=== PATIENT | male | born 1955 | race Caucasian/White ===

== ENCOUNTER 2020-07-17 13:23 | Outpatient (CLI) | payer MEDICARE, BC ==
--- NOTE | 2020-07-17 14:40 | MRI ---
MRI Lumbar Spine Noncontrast: HISTORY: Lumbar stenosis with neurogenic claudication. Patient complains of low back pain with radiation of pa in into bilateral hips for many years. COMPARISON: 03/26/2013 FINDINGS: The visualized retroperitoneal structures demonstrate a normal appearance. Conus medullaris is normal in morphology and terminates at the L1 level. L1-2: Mild disc osteophyte complex with mild facet hypertrophic changes. There is slight effacement o f the ventral aspect of the thecal sac. Neural foramina are patent. There is a greater far lateral disc bulge on the right. L2-3: Broad-based disc osteophyte complex is again present with facet hypertrophic changes and mild l igamentous thickening. There is prominence of the epidural fat posteriorly. Findings result in moderate concentric narrowing of the thecal sac. Mild bilateral neural foraminal narrowing is present . L3-4: Loss of intervertebral disc height. Broad-based disc osteophyte complex is present. Facet hyper trophic changes and ligamentous thickening are noted. There is prominence of epidural fat posteriorly. These findings result in moderate to severe concentric narrowing of the thecal sac which does represent an interval change compared to the prior exam. Mild bilateral neural foraminal narrowing is present. L4-5: Loss of intervertebral disc height. Broad-based disc osteophyte complex is present with severe facet hypertrophic changes and ligamentous thickening. Findings result in severe central canal narrowing overall similar to prior exam. Mild bilateral neural foraminal narrowing is present. L5-S1: Modic type II endplate degenerative changes are present. There is severe loss of intervertebra l disc height. Broad-based osteophyte is present. Mild facet degenerative changes are seen. There is generalized mild central canal narrowing with mild right and moderate left-sided neural foraminal narrowing. Findings are overall similar to the prior exam. IMPRESSION: Multilevel disc degenerative changes with prominence of epidural fat at multiple levels resulting in moderate central canal narrowing at the L2-3 level, moderate to severe central canal narrowing at the L3-4 levels, and severe central canal narrowing at the L4-5 level. Moderate left-sided neural for aminal narrowing is again seen at the L5-S1 level.
--- NOTE | 2020-07-17 15:02 | RAD ---
EXAM: 4 views of the lumbosacral spine HISTORY: Lumbar stenosis with neurogenic claudication COMPARISON: None FINDINGS: 4 views of the lumbosacral spine shows grade 1 anterolisthesis of L4 on L5. The vertebral b odies demonstrate normal height without evidence of fracture. The intervertebral discs are mildly narrowed throughout the lumbar spine with moderate surrounding osteophytes. Moderate posterior facet arthrosis is seen in the lower lumbosacral spine. Alignment is unchanged with flexion and extension. The sacroiliac joints are unremarkable. Atherosclerotic callus cages are seen in the aorta. IMPRESSION: Moderate degenerative changes of the lumbar spine as above
== END 2020-07-17 13:24 | disposition home or self-care (01) ==
LOC: BICMRI 13:23
PROVIDERS: ATTEND Nurse Practitioner Family
DX: M48.062 Spinal stenosis, lumbar region with neurogenic claudication (principal); M47.816 Spondylosis without myelopathy or radiculopathy, lumbar region; M51.36 Other intervertebral disc degeneration, lumbar region; M48.07 Spinal stenosis, lumbosacral region
CPT/HCPCS: 72110; 72148

== ENCOUNTER 2021-02-04 09:54 | Inpatient (IN) | payer MEDICARE, BC ==
[2021-02-04 10:38] LABS: #Lymphocytes 1.3 thou/uL (1.20-3.40); #Monocytes 0.6 thou/uL (0.11-0.59); #Neutrophils 3.5 thou/uL (1.40-6.50); %Basophils 0.5 % (0.0-1.0); %Eosinophils 0.2 % (0.0-10.0); %Lymphocytes 23.6 % (21.0-51.0); %Monocytes 10.7 % (0.0-10.0); %Neutrophils 64.9 % (42.0-75.0); Hemoglobin 15.5 g/dL (14.0-18.0); Mean Corpuscular HGB CONC 34.8 g/dL (32.0-36.0); Mean Corpuscular Hemoglobin 31.7 pg (27.0-31.0); Mean Platelet Volume 5.5 fL (7.4-10.4); Platelet Count 311 thou/uL (130-400); RBC Distribution Width 11.9 % (11.5-14.5); Red Blood Cell (RBC) Count 4.88 mill/uL (4.70-6.10); White Blood Cell (WBC) Count 5.5 thou/uL (4.8-10.8)
[2021-02-04 10:58] LABS: ALT (SGPT) 40 U/L (8-55); AST (SGOT) 35 U/L (5-34); Albumin 4.1 g/dL (3.4-4.8); Alkaline Phosphatase 65 U/L (40-110); BUN (Urea Nitrogen) 9 mg/dL (8.4-25.7); Bilirubin, Total 1.1 mg/dL (0.2-1.2); Calc. Creatinine Clearance 0 mL/min (70-130); Globulin 2.4 g/dL (2.4-3.5); Glucose 111 mg/dL (80-115); Magnesium 1.7 mg/dL (1.6-2.6); Protein, Total 6.5 g/dL (5.8-8.1)
[2021-02-04 11:08] LABS: Anion Gap 18 mmol/L (10-20); Carbon Dioxide 34 mmol/L (23-31); Chloride 75 mmol/L (98-107); Sodium 125 mmol/L (136-145)
[2021-02-04 11:12] LABS: Potassium 2.2 mmol/L (3.5-5.1)
[2021-02-04 11:14] LABS: Phosphorus 1.5 mg/dL (2.3-4.7)
[2021-02-04] MEDS ORDERED: Potassium Chloride 20 MEQ TAB ONE (11:19)
[2021-02-04] MEDS ORDERED: Potassium Chloride 20 MEQ/100 ML PREMIX BAG ONE ×2 (11:34→11:35)
[2021-02-04] MEDS ORDERED: Bisacodyl 5 MG TAB PO PRN (12:01)
[2021-02-04] MEDS ORDERED: Ondansetron PF 4 MG/2 ML Vial IVP PRN (12:01)
[2021-02-04] MEDS ORDERED: Senokot S 8.6-50 MG TAB PO PRN (12:01)
[2021-02-04] MEDS ORDERED: Potassium Phosphate 40 MMOL in Sodium Chloride 0.9% 500 ML IVPB SCH (12:15)
[2021-02-04] MEDS ORDERED: Potassium Chloride 20 MEQ TAB PO SCH (12:15)
[2021-02-04 12:41] LABS: Anion Gap 16 mmol/L (10-20); Carbon Dioxide 35 mmol/L (23-31); Chloride 77 mmol/L (98-107); Sodium 125 mmol/L (136-145)
[2021-02-04 12:45] LABS: Potassium 2.5 mmol/L (3.5-5.1)
[2021-02-04 12:51] LABS: Troponin I 0.012 ng/mL (< 0.028)
[2021-02-04 15:17] VITALS: BMI 31.8
[2021-02-04 15:50] LABS: Anion Gap 11 mmol/L (10-20); BUN (Urea Nitrogen) 8 mg/dL (8.4-25.7); Calc. Creatinine Clearance 110 mL/min (70-130); Calcium 9.4 mg/dL (7.8-10.44); Carbon Dioxide 36 mmol/L (23-31); Chloride 81 mmol/L (98-107); Glucose 102 mg/dL (80-115); Magnesium 1.6 mg/dL (1.6-2.6); Sodium 126 mmol/L (136-145)
[2021-02-04 15:54] LABS: Phosphorus 1.2 mg/dL (2.3-4.7); Potassium 2.3 mmol/L (3.5-5.1)
[2021-02-04 15:55] LABS: Troponin I 0.024 ng/mL (< 0.028)
[2021-02-04] MEDS: Lidocaine 5% Patch TD SCH (16:00)
[2021-02-04] MEDS: NS 0.9% w/ 20 MEQ KCL 1,000 ML/1,000 ML BAG IV SCH (18:16)
[2021-02-04] MEDS: Acetaminophen 325 MG TAB PO PRN (19:24)
[2021-02-04] MEDS: Famotidine/PF 20 mg/2ml Vial SLOW IVP SCH (21:27)
[2021-02-04] MEDS: Potassium Chloride 20 MEQ TAB PO SCH (21:27)
[2021-02-04] MEDS: Magnesium Oxide 400 MG TAB PO SCH (21:27)
[2021-02-04] MEDS: PHOS-NAK 1 PKT PACK PO SCH (21:28)
[2021-02-04] MEDS: HYDROcodone/Acetaminophen 5/325 mg Tablet PO PRN (22:41)
[2021-02-05] MEDS: Acetaminophen 325 MG TAB PO PRN ×2 (00:27→13:12)
[2021-02-05] MEDS: HYDROcodone/Acetaminophen 5/325 mg Tablet PO PRN ×5 (02:15→20:01)
[2021-02-05] MEDS: NS 0.9% w/ 20 MEQ KCL 1,000 ML/1,000 ML BAG IV SCH ×2 (02:56→15:48)
[2021-02-05] MEDS: Lidocaine Patch Removal TOP SCH (04:46)
[2021-02-05 05:22] LABS: ALT (SGPT) 30 U/L (8-55); AST (SGOT) 23 U/L (5-34); Albumin 3.3 g/dL (3.4-4.8); Alkaline Phosphatase 52 U/L (40-110); Anion Gap 12 mmol/L (10-20); BUN (Urea Nitrogen) 5 mg/dL (8.4-25.7); Bilirubin, Total 0.8 mg/dL (0.2-1.2); Calc. Creatinine Clearance 118 mL/min (70-130); Calcium 8.2 mg/dL (7.8-10.44); Carbon Dioxide 32 mmol/L (23-31); Chloride 87 mmol/L (98-107); Globulin 1.9 g/dL (2.4-3.5); Glucose 118 mg/dL (80-115); Magnesium 1.5 mg/dL (1.6-2.6); Protein, Total 5.2 g/dL (5.8-8.1); Sodium 128 mmol/L (136-145)
[2021-02-05 05:25] LABS: Phosphorus 3.2 mg/dL (2.3-4.7); Potassium 2.6 mmol/L (3.5-5.1)
[2021-02-05 05:39] LABS: #Basophils 0.1 thou/uL (0.0-0.2); #Lymphocytes 1.8 thou/uL (1.20-3.40); #Monocytes 0.4 thou/uL (0.11-0.59); #Neutrophils 2.5 thou/uL (1.40-6.50); %Basophils 1.4 % (0.0-1.0); %Eosinophils 0.5 % (0.0-10.0); %Lymphocytes 38.1 % (21.0-51.0); %Monocytes 8.5 % (0.0-10.0); %Neutrophils 51.5 % (42.0-75.0); Hemoglobin 13.1 g/dL (14.0-18.0); Mean Corpuscular HGB CONC 33.6 g/dL (32.0-36.0); Mean Corpuscular Hemoglobin 31.5 pg (27.0-31.0); Mean Platelet Volume 5.5 fL (7.4-10.4); Platelet Count 248 thou/uL (130-400); RBC Distribution Width 12.1 % (11.5-14.5); Red Blood Cell (RBC) Count 4.16 mill/uL (4.70-6.10); White Blood Cell (WBC) Count 4.8 thou/uL (4.8-10.8)
[2021-02-05] MEDS ORDERED: Magnesium 2 GM/50 ML 2 GM in Premix Bag 1 BAG IVPB SCH (05:45)
[2021-02-05] MEDS ORDERED: Electrolyte Replacement Protocol FS PRN (05:45)
[2021-02-05] MEDS: Potassium Chloride 20 MEQ TAB PO SCH ×4 (06:15→20:00)
[2021-02-05] MEDS: Amlodipine 10 MG TAB PO SCH (08:46)
[2021-02-05] MEDS: Enoxaparin Sodium 40 MG/0.4 ML SYRINGE SC SCH (08:47)
[2021-02-05] MEDS: Aspirin 81 mg Enteric Coated Tablet PO SCH (08:47)
[2021-02-05] MEDS: Famotidine/PF 20 mg/2ml Vial SLOW IVP SCH ×2 (08:47→20:00)
[2021-02-05] MEDS: Folic Acid 1 MG TAB PO SCH (08:48)
[2021-02-05] MEDS: Thiamine 100 MG TAB PO SCH (08:48)
[2021-02-05] MEDS: Magnesium Oxide 400 MG TAB PO SCH ×2 (08:48→20:00)
[2021-02-05] MEDS: Lisinopril 20 MG TAB PO SCH (08:48)
[2021-02-05] MEDS: PHOS-NAK 1 PKT PACK PO SCH ×3 (08:49→19:59)
[2021-02-05] MEDS: Lidocaine 5% Patch TD SCH (15:49)
[2021-02-05 18:50] LABS: SARS-CoV-2 PCR by NAA Not Detected (NotDetected)
[2021-02-05] MEDS ORDERED: Simvastatin 10 MG TAB PO SCH (21:00)
[2021-02-05] MEDS ORDERED: Pravastatin Sodium 20 MG TAB PO SCH (21:00)
[2021-02-06] MEDS: HYDROcodone/Acetaminophen 5/325 mg Tablet PO PRN ×3 (00:53→09:34)
[2021-02-06] MEDS: Acetaminophen 325 MG TAB PO PRN (04:08)
[2021-02-06] MEDS: NS 0.9% w/ 20 MEQ KCL 1,000 ML/1,000 ML BAG IV SCH (04:09)
[2021-02-06] MEDS: Lidocaine Patch Removal TOP SCH (05:11)
[2021-02-06 05:22] LABS: #Basophils 0.1 thou/uL (0.0-0.2); #Eosinphils 0.1 thou/uL (0.0-0.7); #Lymphocytes 1.7 thou/uL (1.20-3.40); #Monocytes 0.5 thou/uL (0.11-0.59); #Neutrophils 3.1 thou/uL (1.40-6.50); %Basophils 1.2 % (0.0-1.0); %Eosinophils 1.6 % (0.0-10.0); %Lymphocytes 30.7 % (21.0-51.0); %Monocytes 9.5 % (0.0-10.0); %Neutrophils 56.9 % (42.0-75.0); Hemoglobin 12.7 g/dL (14.0-18.0); Mean Corpuscular HGB CONC 32.5 g/dL (32.0-36.0); Mean Corpuscular Hemoglobin 30.5 pg (27.0-31.0); Mean Corpuscular Volume 93.7 fL (78.0-98.0); Mean Platelet Volume 5.7 fL (7.4-10.4); Platelet Count 266 thou/uL (130-400); RBC Distribution Width 12.3 % (11.5-14.5); Red Blood Cell (RBC) Count 4.15 mill/uL (4.70-6.10); White Blood Cell (WBC) Count 5.4 thou/uL (4.8-10.8)
[2021-02-06 05:36] LABS: Anion Gap 12 mmol/L (10-20); BUN (Urea Nitrogen) 5 mg/dL (8.4-25.7); Calc. Creatinine Clearance 122 mL/min (70-130); Calcium 8.2 mg/dL (7.8-10.44); Carbon Dioxide 28 mmol/L (23-31); Chloride 96 mmol/L (98-107); Glucose 94 mg/dL (80-115); Magnesium 1.7 mg/dL (1.6-2.6); Potassium 3.7 mmol/L (3.5-5.1); Sodium 132 mmol/L (136-145)
[2021-02-06] MEDS ORDERED: Magnesium 2 GM/50 ML 2 GM in Premix Bag 1 BAG IVPB SCH (06:15)
[2021-02-06 07:38] VITALS: BP 124/73; TEMP 97.8
[2021-02-06] MEDS: Famotidine/PF 20 mg/2ml Vial SLOW IVP SCH (09:28)
[2021-02-06] MEDS: Amlodipine 10 MG TAB PO SCH (09:30)
[2021-02-06] MEDS: Aspirin 81 mg Enteric Coated Tablet PO SCH (09:38)
[2021-02-06] MEDS: PHOS-NAK 1 PKT PACK PO SCH (09:39)
[2021-02-06] MEDS: Lisinopril 20 MG TAB PO SCH (09:40)
[2021-02-06] MEDS: Folic Acid 1 MG TAB PO SCH (09:42)
[2021-02-06] MEDS: Magnesium Oxide 400 MG TAB PO SCH (09:45)
[2021-02-06] MEDS: Thiamine 100 MG TAB PO SCH (09:45)
[2021-02-06] MEDS: Potassium Chloride 20 MEQ TAB PO SCH (09:46)
[2021-02-06] MEDS: Enoxaparin Sodium 40 MG/0.4 ML SYRINGE SC SCH (09:48)
== END 2021-02-06 12:55 | disposition home or self-care (01) | DRG 640 ==
LOC: ERS 09:54 → 2SE 11:48
PROVIDERS: ADMIT Family Medicine; ATTEND Hospitalist
DX: E87.6 Hypokalemia (principal); G93.41 Metabolic encephalopathy; E87.1 Hypo-osmolality and hyponatremia; Z20.822 Contact with and (suspected) exposure to COVID-19; Z23 Encounter for immunization; I10 Essential (primary) hypertension; M54.5 Low back pain; G89.29 Other chronic pain; E78.5 Hyperlipidemia, unspecified; E83.39 Other disorders of phosphorus metabolism; F41.9 Anxiety disorder, unspecified; E66.9 Obesity, unspecified; Z68.31 Body mass index [BMI] 31.0-31.9, adult; E83.42 Hypomagnesemia; E86.0 Dehydration; F10.20 Alcohol dependence, uncomplicated; M79.672 Pain in left foot; E78.00 Pure hypercholesterolemia, unspecified; Z98.52 Vasectomy status; Z79.82 Long term (current) use of aspirin; Z79.899 Other long term (current) drug therapy
CPT/HCPCS: 36415; 80048; 80053; 83735; 83930; 83935; 84100; 84443; 84484; 85025; 87635; 90471; 90732; 93005; 93306; 93970; 94760; 96365; 96366; G0009; J1650; J3475; J3480; J7030; S0028; U0003; U0005

== ENCOUNTER 2022-05-26 09:11 | Inpatient (IN) | payer MEDICARE, BC ==
[2022-05-26] MEDS ORDERED: Cefepime 2 GM VIAL ONE (09:25)
[2022-05-26] MEDS ORDERED: Vancomycin 1 GM/200 ML BAG ONE (09:25)
[2022-05-26 10:06] LABS: #Eosinphils 0.8 thou/uL (0.0-0.7); #Monocytes 1.4 thou/uL (0.11-0.59); #Neutrophils 10.6 thou/uL (1.40-6.50); %Basophils 0.2 % (0.0-1.0); %Eosinophils 5.2 % (0.0-10.0); %Lymphocytes 13.4 % (21.0-51.0); %Monocytes 9.3 % (0.0-10.0); %Neutrophils 71.9 % (42.0-75.0); Hemoglobin 15.5 g/dL (14.0-18.0); Mean Corpuscular HGB CONC 31.8 g/dL (32.0-36.0); Mean Corpuscular Hemoglobin 32.5 pg (27.0-31.0); Mean Platelet Volume 6.1 fL (7.4-10.4); Platelet Count 315 thou/uL (130-400); RBC Distribution Width 12.1 % (11.5-14.5); Red Blood Cell (RBC) Count 4.77 mill/uL (4.70-6.10); White Blood Cell (WBC) Count 14.8 thou/uL (4.8-10.8)
[2022-05-26 10:07] LABS: Bilirubin Negative (Negative); Blood, Urine Negative (Negative); Clarity Clear (Clear); Glucose, Urine (Dipstick) Normal (Negative); Ketone, Urine Negative (Negative); Leukocyte Negative Leu/uL (Negative); Nitrite Negative (Negative); Protein, Urine (Dipstick) Negative (Neg-Trace); Specific Gravity, Urine 1.012 (1.002-1.036); Urobilinogen Normal mg/dL (Less than 2); pH, Urine 5.5 (5.0-9.0)
[2022-05-26 10:24] LABS: ALT (SGPT) 13 U/L (8-55); AST (SGOT) 16 U/L (5-34); Albumin 3.9 g/dL (3.4-4.8); Alkaline Phosphatase 108 U/L (40-110); Anion Gap 17 mmol/L (10-20); BUN (Urea Nitrogen) 7 mg/dL (8.4-25.7); Bilirubin, Total 1.5 mg/dL (0.2-1.2); Calc. Creatinine Clearance 0 mL/min (70-130); Calcium 8.7 mg/dL (7.8-10.44); Carbon Dioxide 29 mmol/L (23-31); Chloride 95 mmol/L (98-107); Estimated GFR 65; Globulin 2.3 g/dL (2.4-3.5); Glucose 111 mg/dL (80-115); Potassium 3.9 mmol/L (3.5-5.1); Protein, Total 6.2 g/dL (5.8-8.1); Sodium 137 mmol/L (136-145)
[2022-05-26 11:28] LABS: SARS-CoV-2 NAA Rapid Test Not Detected (NotDetected)
[2022-05-26 13:15] LABS: Lactic Acid 2.3 mmol/L (0.5-2.2)
[2022-05-26 14:25] VITALS: BMI 39.4
[2022-05-26] MEDS: HYDROcodone/Acetaminophen 7.5/325 mg Tablet PO SCH ×2 (14:57→20:32)
[2022-05-26] MEDS: Morphine 2 MG/ML VIAL SLOW IVP PRN ×2 (16:21→21:34)
[2022-05-26] MEDS: Cefepime 2 GM in Sodium Chloride 0.9% 100 ML IVPB SCH (20:33)
[2022-05-26] MEDS: Vancomycin 1 GM in Premix Bag 1 BAG IVPB SCH (21:09)
[2022-05-26] MEDS ORDERED: Cefepime 2 GM in Sodium Chloride 0.9% 100 ML IVPB SCH (22:00)
[2022-05-27] MEDS: Morphine 2 MG/ML VIAL SLOW IVP PRN ×4 (02:49→22:31)
[2022-05-27 06:43] LABS: #Eosinphils 0.8 thou/uL (0.0-0.7); #Lymphocytes 1.7 thou/uL (1.20-3.40); #Monocytes 1.4 thou/uL (0.11-0.59); %Basophils 0.1 % (0.0-1.0); %Eosinophils 5.4 % (0.0-10.0); %Lymphocytes 11.5 % (21.0-51.0); %Monocytes 9.4 % (0.0-10.0); %Neutrophils 73.5 % (42.0-75.0); Hemoglobin 14.2 g/dL (14.0-18.0); Mean Corpuscular HGB CONC 33.6 g/dL (32.0-36.0); Mean Corpuscular Hemoglobin 34.6 pg (27.0-31.0); Mean Platelet Volume 6.4 fL (7.4-10.4); Platelet Count 246 thou/uL (130-400); RBC Distribution Width 12.2 % (11.5-14.5); Red Blood Cell (RBC) Count 4.11 mill/uL (4.70-6.10)
[2022-05-27 07:13] LABS: ALT (SGPT) 10 U/L (8-55); AST (SGOT) 17 U/L (5-34); Albumin 2.9 g/dL (3.4-4.8); Alkaline Phosphatase 88 U/L (40-110); Anion Gap 16 mmol/L (10-20); BUN (Urea Nitrogen) 6 mg/dL (8.4-25.7); Calc. Creatinine Clearance 142 mL/min (70-130); Calcium 8.1 mg/dL (7.8-10.44); Carbon Dioxide 21 mmol/L (23-31); Chloride 101 mmol/L (98-107); Estimated GFR 95; Globulin 2.2 g/dL (2.4-3.5); Glucose 102 mg/dL (80-115); Potassium 3.8 mmol/L (3.5-5.1); Protein, Total 5.1 g/dL (5.8-8.1); Sodium 134 mmol/L (136-145)
[2022-05-27] MEDS: Cefepime 2 GM in Sodium Chloride 0.9% 100 ML IVPB SCH ×2 (08:10→20:16)
[2022-05-27] MEDS: Enoxaparin Sodium 40 MG/0.4 ML SYRINGE SC SCH (08:10)
[2022-05-27] MEDS: HYDROcodone/Acetaminophen 7.5/325 mg Tablet PO SCH ×2 (08:11→14:37)
[2022-05-27] MEDS: Vancomycin 1 GM in Premix Bag 1 BAG IVPB SCH ×2 (10:17→22:07)
[2022-05-27] MEDS: Silver Sulfadiazine 50 GM TUBE TOP SCH (14:38)
[2022-05-27] MEDS ORDERED: HYDROcodone/Acetaminophen 5/325 mg Tablet PO PRN (18:28)
[2022-05-27] MEDS ORDERED: Acetaminophen 325 MG TAB PO PRN (18:28)
[2022-05-27] MEDS ORDERED: Ondansetron ODT 4 MG TAB PO PRN (19:47)
[2022-05-27] MEDS ORDERED: Ondansetron PF 4 MG/2 ML Vial IVP PRN (19:47)
[2022-05-27] MEDS: Simvastatin 10 MG TAB PO SCH (20:15)
[2022-05-27] MEDS: Calcium Carbonate 500 MG ChewTAB PO PRN (20:15)
[2022-05-27] MEDS: Carvedilol 6.25 MG TAB PO SCH (20:16)
[2022-05-27] MEDS: HYDROcodone/Acetaminophen 10/325 mg Tablet PO PRN (20:16)
[2022-05-27 21:24] LABS: Vancomycin, Trough 11.9 ug/mL
[2022-05-27] MEDS: VANCOMYCIN 1.25 GM/250 ML BAG 1.25 GM in Premix Bag 1 BAG IVPB SCH (22:29)
[2022-05-28] MEDS ORDERED: diphenhydrAMINE 25 MG CAP PO SCH (01:30)
[2022-05-28] MEDS: HYDROcodone/Acetaminophen 10/325 mg Tablet PO PRN ×5 (02:24→22:11)
[2022-05-28 07:02] LABS: #Eosinphils 1.1 thou/uL (0.0-0.7); #Lymphocytes 1.7 thou/uL (1.20-3.40); #Monocytes 1.2 thou/uL (0.11-0.59); #Neutrophils 9.2 thou/uL (1.40-6.50); %Basophils 0.2 % (0.0-1.0); %Eosinophils 8.6 % (0.0-10.0); %Lymphocytes 12.6 % (21.0-51.0); %Monocytes 8.7 % (0.0-10.0); %Neutrophils 69.9 % (42.0-75.0); Hemoglobin 13.7 g/dL (14.0-18.0); Mean Corpuscular HGB CONC 32.9 g/dL (32.0-36.0); Mean Corpuscular Hemoglobin 33.8 pg (27.0-31.0); Mean Platelet Volume 5.7 fL (7.4-10.4); Platelet Count 301 thou/uL (130-400); Red Blood Cell (RBC) Count 4.04 mill/uL (4.70-6.10); White Blood Cell (WBC) Count 13.2 thou/uL (4.8-10.8)
[2022-05-28 07:24] LABS: Anion Gap 13 mmol/L (10-20); BUN (Urea Nitrogen) 5 mg/dL (8.4-25.7); CRP (Inflammatory) 9.61 mg/dL (= or < 0.5); Calc. Creatinine Clearance 147 mL/min (70-130); Calcium 8.2 mg/dL (7.8-10.44); Carbon Dioxide 25 mmol/L (23-31); Chloride 98 mmol/L (98-107); Estimated GFR 96; Glucose 113 mg/dL (80-115); Potassium 3.7 mmol/L (3.5-5.1); Sodium 132 mmol/L (136-145)
[2022-05-28] MEDS: Cefepime 2 GM in Sodium Chloride 0.9% 100 ML IVPB SCH ×2 (09:10→20:27)
[2022-05-28] MEDS: Carvedilol 6.25 MG TAB PO SCH ×2 (09:11→20:27)
[2022-05-28] MEDS: Aspirin 81 mg Enteric Coated Tablet PO SCH (09:11)
[2022-05-28] MEDS: Enoxaparin Sodium 40 MG/0.4 ML SYRINGE SC SCH (09:11)
[2022-05-28] MEDS: Lisinopril 20 MG TAB PO SCH (09:12)
[2022-05-28] MEDS: VANCOMYCIN 1.25 GM/250 ML BAG 1.25 GM in Premix Bag 1 BAG IVPB SCH ×2 (10:20→22:11)
[2022-05-28] MEDS: Silver Sulfadiazine 50 GM TUBE TOP SCH (14:09)
[2022-05-28] MEDS ORDERED: diphenhydrAMINE 50 MG/ML VIAL IVP SCH (18:15)
[2022-05-28] MEDS ORDERED: methylPREDNISolone Sod Succ 40 MG VIAL IVP SCH (20:15)
[2022-05-28] MEDS: Simvastatin 10 MG TAB PO SCH (22:05)
[2022-05-29] MEDS: HYDROcodone/Acetaminophen 10/325 mg Tablet PO PRN ×5 (03:36→22:40)
[2022-05-29 07:03] LABS: #Eosinphils 0.1 thou/uL (0.0-0.7); #Lymphocytes 0.9 thou/uL (1.20-3.40); #Monocytes 0.2 thou/uL (0.11-0.59); #Neutrophils 8.5 thou/uL (1.40-6.50); %Basophils 0.2 % (0.0-1.0); %Eosinophils 0.7 % (0.0-10.0); %Lymphocytes 9.4 % (21.0-51.0); %Monocytes 2.3 % (0.0-10.0); %Neutrophils 87.4 % (42.0-75.0); Hemoglobin 13.9 g/dL (14.0-18.0); Mean Corpuscular HGB CONC 32.4 g/dL (32.0-36.0); Mean Corpuscular Hemoglobin 32.9 pg (27.0-31.0); Mean Platelet Volume 5.7 fL (7.4-10.4); Platelet Count 322 thou/uL (130-400); RBC Distribution Width 11.9 % (11.5-14.5); Red Blood Cell (RBC) Count 4.23 mill/uL (4.70-6.10); White Blood Cell (WBC) Count 9.7 thou/uL (4.8-10.8)
[2022-05-29 07:24] LABS: ALT (SGPT) 13 U/L (8-55); AST (SGOT) 16 U/L (5-34); Albumin 3.2 g/dL (3.4-4.8); Alkaline Phosphatase 71 U/L (40-110); Anion Gap 15 mmol/L (10-20); BUN (Urea Nitrogen) 5 mg/dL (8.4-25.7); Bilirubin, Total 0.4 mg/dL (0.2-1.2); Calc. Creatinine Clearance 140 mL/min (70-130); Calcium 8.2 mg/dL (7.8-10.44); Carbon Dioxide 24 mmol/L (23-31); Chloride 98 mmol/L (98-107); Estimated GFR 95; Globulin 2.5 g/dL (2.4-3.5); Glucose 146 mg/dL (80-115); Protein, Total 5.7 g/dL (5.8-8.1); Sodium 133 mmol/L (136-145)
[2022-05-29] MEDS: Cefepime 2 GM in Sodium Chloride 0.9% 100 ML IVPB SCH ×2 (09:02→20:58)
[2022-05-29] MEDS: Aspirin 81 mg Enteric Coated Tablet PO SCH (09:03)
[2022-05-29] MEDS: methylPREDNISolone Sod Succ 40 MG VIAL IVP SCH ×3 (09:03→21:06)
[2022-05-29] MEDS: Lisinopril 20 MG TAB PO SCH (09:05)
[2022-05-29] MEDS: Carvedilol 6.25 MG TAB PO SCH ×2 (09:05→20:57)
[2022-05-29] MEDS: Enoxaparin Sodium 40 MG/0.4 ML SYRINGE SC SCH (09:05)
[2022-05-29 09:55] LABS: Vancomycin, Trough 14.4 ug/mL
[2022-05-29] MEDS: Silver Sulfadiazine 50 GM TUBE TOP SCH (11:38)
[2022-05-29] MEDS: VANCOMYCIN 1.25 GM/250 ML BAG 1.25 GM in Premix Bag 1 BAG IVPB SCH (12:03)
[2022-05-29] MEDS: Simvastatin 10 MG TAB PO SCH (20:57)
[2022-05-29] MEDS: diphenhydrAMINE 25 MG CAP PO PRN (20:57)
[2022-05-30] MEDS: HYDROcodone/Acetaminophen 10/325 mg Tablet PO PRN ×5 (03:24→21:37)
[2022-05-30] MEDS: Enoxaparin Sodium 40 MG/0.4 ML SYRINGE SC SCH (09:05)
[2022-05-30] MEDS: Cefepime 2 GM in Sodium Chloride 0.9% 100 ML IVPB SCH ×2 (09:05→20:12)
[2022-05-30] MEDS: methylPREDNISolone Sod Succ 40 MG VIAL IVP SCH (09:06)
[2022-05-30] MEDS: Aspirin 81 mg Enteric Coated Tablet PO SCH (09:10)
[2022-05-30] MEDS: Lisinopril 20 MG TAB PO SCH (09:10)
[2022-05-30] MEDS: Carvedilol 6.25 MG TAB PO SCH ×2 (09:10→20:11)
[2022-05-30] MEDS ORDERED: Gentamicin TOPICAL Ointment 0.1% 15 gm Tube TOP SCH ×2 (11:00→21:00)
[2022-05-30] MEDS: Silver Sulfadiazine 50 GM TUBE TOP SCH (11:07)
[2022-05-30] MEDS: Simvastatin 10 MG TAB PO SCH (20:11)
[2022-05-30] MEDS: Calcium Carbonate 500 MG ChewTAB PO PRN (20:12)
[2022-05-31] MEDS: HYDROcodone/Acetaminophen 10/325 mg Tablet PO PRN ×5 (01:58→23:08)
[2022-05-31] MEDS: Morphine 2 MG/ML VIAL SLOW IVP PRN ×2 (03:01→20:31)
[2022-05-31 06:54] LABS: Band 2 % (5-11); Hemoglobin 14.9 g/dL (14.0-18.0); Lymphocytes 12 % (21-51); MDiff Complete? YES; Mean Corpuscular HGB CONC 33.2 g/dL (32.0-36.0); Mean Platelet Volume 5.9 fL (7.4-10.4); Monocytes 15 % (0-10); Neutrophil 56 % (42-75); Platelet Count 405 thou/uL (130-400); Platelet Morphology Comment Appears Increased; RBC Distribution Width 12.2 % (11.5-14.5); RBC Morphology Normal; Reactive Lymphocytes 15 % (0-10); Red Blood Cell (RBC) Count 4.38 mill/uL (4.70-6.10); White Blood Cell (WBC) Count 22.2 thou/uL (4.8-10.8)
[2022-05-31 07:26] LABS: Calcium 9.5 mg/dL (7.8-10.44)
[2022-05-31 07:27] LABS: ALT (SGPT) 26 U/L (8-55); AST (SGOT) 33 U/L (5-34); Albumin 3.9 g/dL (3.4-4.8); Alkaline Phosphatase 82 U/L (40-110); Anion Gap 15 mmol/L (10-20); BUN (Urea Nitrogen) 9 mg/dL (8.4-25.7); Bilirubin, Total 0.5 mg/dL (0.2-1.2); Calc. Creatinine Clearance 143 mL/min (70-130); Carbon Dioxide 29 mmol/L (23-31); Chloride 95 mmol/L (98-107); Estimated GFR 95; Globulin 2.8 g/dL (2.4-3.5); Glucose 111 mg/dL (80-115); Potassium 4.1 mmol/L (3.5-5.1); Protein, Total 6.7 g/dL (5.8-8.1); Sodium 135 mmol/L (136-145)
[2022-05-31] MEDS: Aspirin 81 mg Enteric Coated Tablet PO SCH (08:56)
[2022-05-31] MEDS: Lisinopril 20 MG TAB PO SCH (08:56)
[2022-05-31] MEDS: Cefepime 2 GM in Sodium Chloride 0.9% 100 ML IVPB SCH (08:56)
[2022-05-31] MEDS: Carvedilol 6.25 MG TAB PO SCH ×2 (08:57→20:21)
[2022-05-31] MEDS: Enoxaparin Sodium 40 MG/0.4 ML SYRINGE SC SCH (08:57)
[2022-05-31] MEDS ORDERED: Iopamidol-370 76% 500 ML 1 ML ONE (09:04)
[2022-05-31 11:31] LABS: Actual Bicarbonate (HCO3a) 29.5 mEq/L (22-28); Base Excess (BEa) 6.2 mEq/L (-2.0 to +3.0); Calcium, Ionized (arterial) 1.11 mmol/L (1.12-1.30); Hemoglobin (Hb) 12.9 g/dL (14.0-18.0); O2 Tension (PaO2), arterial 179.4 mmHg (> 80.0); Potassium - ABG Lab 4.03 mmol/L (3.70-5.30); pH, Arterial 7.51 (7.35-7.45)
[2022-05-31 11:33] LABS: Puncture Site RRA
[2022-05-31] MEDS ORDERED: ALPRAZolam 0.5 MG TAB PO SCH (12:00)
[2022-05-31] MEDS: Gentamicin TOPICAL Ointment 0.1% 15 gm Tube TOP SCH (14:43)
[2022-05-31] MEDS: VANCOMYCIN 1.75 GM/500 ML BAG 1.75 GM in Premix Bag 1 BAG IVPB SCH (14:44)
[2022-05-31] MEDS: diphenhydrAMINE 25 MG CAP PO PRN (18:31)
[2022-05-31] MEDS: Simvastatin 10 MG TAB PO SCH (20:21)
[2022-05-31] MEDS ORDERED: VANCOMYCIN 1.25 GM/250 ML BAG IVPB SCH (21:00)
[2022-06-01] MEDS: VANCOMYCIN 1.75 GM/500 ML BAG 1.75 GM in Premix Bag 1 BAG IVPB SCH (02:09)
[2022-06-01] MEDS: Morphine 2 MG/ML VIAL SLOW IVP PRN ×3 (03:39→22:23)
[2022-06-01] MEDS: HYDROcodone/Acetaminophen 10/325 mg Tablet PO PRN ×3 (05:22→19:42)
[2022-06-01 06:25] LABS: #Basophils 0.1 thou/uL (0.0-0.2); #Eosinphils 0.7 thou/uL (0.0-0.7); #Lymphocytes 1.7 thou/uL (1.20-3.40); #Monocytes 1.3 thou/uL (0.11-0.59); #Neutrophils 10.5 thou/uL (1.40-6.50); %Basophils 0.3 % (0.0-1.0); %Eosinophils 5.1 % (0.0-10.0); %Lymphocytes 12.2 % (21.0-51.0); %Monocytes 9.1 % (0.0-10.0); %Neutrophils 73.3 % (42.0-75.0); Hemoglobin 13.3 g/dL (14.0-18.0); Mean Corpuscular HGB CONC 33.5 g/dL (32.0-36.0); Platelet Count 325 thou/uL (130-400); White Blood Cell (WBC) Count 14.3 thou/uL (4.8-10.8)
[2022-06-01 07:06] LABS: ALT (SGPT) 23 U/L (8-55); AST (SGOT) 27 U/L (5-34); Albumin 3.2 g/dL (3.4-4.8); Alkaline Phosphatase 67 U/L (40-110); Anion Gap 18 mmol/L (10-20); BUN (Urea Nitrogen) 7 mg/dL (8.4-25.7); Bilirubin, Total 0.7 mg/dL (0.2-1.2); Calc. Creatinine Clearance 147 mL/min (70-130); Calcium 8.4 mg/dL (7.8-10.44); Carbon Dioxide 23 mmol/L (23-31); Chloride 96 mmol/L (98-107); Estimated GFR 96; Globulin 2.8 g/dL (2.4-3.5); Glucose 99 mg/dL (80-115); Potassium 4.1 mmol/L (3.5-5.1); Sodium 133 mmol/L (136-145)
[2022-06-01] MEDS: Lisinopril 20 MG TAB PO SCH (08:09)
[2022-06-01] MEDS: Carvedilol 6.25 MG TAB PO SCH ×2 (08:09→20:57)
[2022-06-01] MEDS: Enoxaparin Sodium 40 MG/0.4 ML SYRINGE SC SCH (08:09)
[2022-06-01] MEDS: Aspirin 81 mg Enteric Coated Tablet PO SCH (08:09)
[2022-06-01] MEDS: Gentamicin TOPICAL Ointment 0.1% 15 gm Tube TOP SCH (09:45)
[2022-06-01 10:52] LABS: HIV (1/2) Antibody/Antigen Non-Reactive (NonReactive); HIV 1/2 INDEX 0.24 S/CO (<1.00)
[2022-06-01] MEDS ORDERED: predniSONE 20 MG TAB PO SCH (12:45)
[2022-06-01] MEDS ORDERED: Furosemide 40 MG/4 ML VIAL SLOW IVP SCH (12:45)
[2022-06-01] MEDS: Calcium Carbonate 500 MG ChewTAB PO PRN (13:09)
[2022-06-01 13:54] LABS: Syphilis Antibody Nonreactive (Nonreactive); Syphilis Antibody Index 0.02 S/CO (<1.00 Non-Reactive)
[2022-06-01] MEDS ORDERED: Lidocaine 1% (PF) 30 ML VIAL ONE (15:01)
[2022-06-01] MEDS: Doxycycline 100 MG CAP PO SCH (20:57)
[2022-06-01] MEDS: Simvastatin 10 MG TAB PO SCH (20:58)
[2022-06-01] MEDS ORDERED: Doxycycline 100 MG in Sodium Chloride 0.9% 100 ML IVPB SCH (21:00)
[2022-06-02] MEDS: HYDROcodone/Acetaminophen 10/325 mg Tablet PO PRN ×4 (01:40→19:48)
[2022-06-02 01:43] LABS: Vancomycin, Trough 9.7 ug/mL
[2022-06-02] MEDS: Aspirin 81 mg Enteric Coated Tablet PO SCH (07:32)
[2022-06-02] MEDS: predniSONE 20 MG TAB PO SCH (07:32)
[2022-06-02] MEDS: Carvedilol 6.25 MG TAB PO SCH ×2 (07:32→19:48)
[2022-06-02] MEDS: Lisinopril 20 MG TAB PO SCH (07:32)
[2022-06-02] MEDS: Doxycycline 100 MG CAP PO SCH ×2 (07:33→19:48)
[2022-06-02] MEDS: Enoxaparin Sodium 40 MG/0.4 ML SYRINGE SC SCH (07:33)
[2022-06-02] MEDS: Gentamicin TOPICAL Ointment 0.1% 15 gm Tube TOP SCH (10:08)
[2022-06-02] MEDS: Morphine 2 MG/ML VIAL SLOW IVP PRN ×3 (10:24→21:09)
[2022-06-02] MEDS: Simvastatin 10 MG TAB PO SCH (19:49)
[2022-06-03] MEDS: HYDROcodone/Acetaminophen 10/325 mg Tablet PO PRN ×4 (01:53→14:54)
[2022-06-03] MEDS: Morphine 2 MG/ML VIAL SLOW IVP PRN (05:19)
[2022-06-03] MEDS: Doxycycline 100 MG CAP PO SCH (08:11)
[2022-06-03] MEDS: Aspirin 81 mg Enteric Coated Tablet PO SCH (08:11)
[2022-06-03] MEDS: predniSONE 20 MG TAB PO SCH (08:11)
[2022-06-03] MEDS: Lisinopril 20 MG TAB PO SCH (08:11)
[2022-06-03] MEDS: Carvedilol 6.25 MG TAB PO SCH (08:11)
[2022-06-03] MEDS: Gentamicin TOPICAL Ointment 0.1% 15 gm Tube TOP SCH (08:11)
[2022-06-03] MEDS: Enoxaparin Sodium 40 MG/0.4 ML SYRINGE SC SCH (08:12)
[2022-06-03 08:33] VITALS: BP 162/77; TEMP 98.3
[2022-06-04 16:11] LABS: HIV-1 Quantitative, RNA PCR <20 copies/mL (.)
== END 2022-06-03 16:10 | disposition home or self-care (01) | DRG 595 ==
LOC: ERS 09:11 → T4-B 12:14
PROVIDERS: ADMIT Hospitalist; ATTEND Hospitalist
PROC: 3E03329 Introduction of Other Anti-infective into Peripheral Vein, Percutaneous Approach (ICD-10-PCS; principal; 2022-05-26)
PROC: 0HBHXZX Excision of Right Upper Leg Skin, External Approach, Diagnostic (ICD-10-PCS; 2022-06-01)
DX: L12.0 Bullous pemphigoid (principal); A41.9 Sepsis, unspecified organism; L03.116 Cellulitis of left lower limb; L03.115 Cellulitis of right lower limb; E87.2 Acidosis; Z20.822 Contact with and (suspected) exposure to COVID-19; G89.29 Other chronic pain; M54.9 Dorsalgia, unspecified; I87.2 Venous insufficiency (chronic) (peripheral); E78.5 Hyperlipidemia, unspecified; I10 Essential (primary) hypertension; G47.33 Obstructive sleep apnea (adult) (pediatric); F41.0 Panic disorder [episodic paroxysmal anxiety]; E87.70 Fluid overload, unspecified; E66.01 Morbid (severe) obesity due to excess calories; Z68.39 Body mass index [BMI] 39.0-39.9, adult; Z79.899 Other long term (current) drug therapy; Z79.82 Long term (current) use of aspirin
CPT/HCPCS: 36415; 36416; 36600; 71275; 80048; 80053; 80202; 81003; 82805; 83605; 83880; 84145; 84484; 85025; 85379; 85652; 86140; 86780; 87040; 87070; 87077; 87086; 87186; 87205; 87389; 87536; 88305; 93005; 93306; 94640; 96361; 96374; 96375; 97139; J0692; J1200; J1650; J1940; J2270; J2405; J2920; J3370; J3490; J7512; J7620; Q0162; Q9967; U0002; U0003; U0005

== ENCOUNTER 2022-06-04 08:10 | Emergency (ER) | payer MEDICARE, BC ==
[2022-06-04] MEDS ORDERED: HYDROcodone/Acetaminophen 5/325 mg Tablet ONE (10:04)
== END 2022-06-04 14:33 ==
LOC: ERS 08:10
DX: L12.0 Bullous pemphigoid (principal); G89.29 Other chronic pain; M54.50 Low back pain, unspecified; M79.671 Pain in right foot; M79.672 Pain in left foot; Z73.6 Limitation of activities due to disability; I10 Essential (primary) hypertension; E78.5 Hyperlipidemia, unspecified; Z79.82 Long term (current) use of aspirin; Z79.899 Other long term (current) drug therapy
CPT/HCPCS: 99284

== ENCOUNTER 2022-12-08 12:45 | Emergency (ER) | payer MEDICARE, BC ==
[2022-12-08 16:05] LABS: #Eosinphils 0.2 thou/uL (0.0-0.7); #Monocytes 0.6 thou/uL (0.11-0.59); #Neutrophils 5.9 thou/uL (1.40-6.50); %Basophils 0.3 % (0.0-1.0); %Eosinophils 2.6 % (0.0-10.0); %Lymphocytes 22.5 % (21.0-51.0); %Neutrophils 67.6 % (42.0-75.0); Hemoglobin 15.3 g/dL (14.0-18.0); Mean Corpuscular HGB CONC 33.4 g/dL (32.0-36.0); Mean Corpuscular Hemoglobin 31.1 pg (27.0-31.0); Mean Corpuscular Volume 93.1 fl (78.0-98.0); Mean Platelet Volume 6.6 fL (7.4-10.4); Platelet Count 237 10x3/uL (130-400); RBC Distribution Width 11.7 % (11.5-14.5); Red Blood Cell (RBC) Count 4.91 mill/uL (4.70-6.10); White Blood Cell (WBC) Count 8.8 10x3/uL (4.8-10.8)
[2022-12-08 16:32] LABS: ALT (SGPT) 11 U/L (8-55); AST (SGOT) 18 U/L (5-34); Albumin 4.1 g/dL (3.4-4.8); Alkaline Phosphatase 66 U/L (40-110); Anion Gap 14 mmol/L (10-20); BUN (Urea Nitrogen) 12 mg/dL (8.4-25.7); Bilirubin, Total 0.7 mg/dL (0.2-1.2); Calc. Creatinine Clearance 0 mL/min (70-130); Calcium 9.6 mg/dL (7.8-10.44); Carbon Dioxide 25 mmol/L (23-31); Chloride 97 mmol/L (98-107); Estimated GFR 64; Globulin 2.5 g/dL (2.4-3.5); Glucose 103 mg/dL (80-115); Potassium 4.1 mmol/L (3.5-5.1); Protein, Total 6.6 g/dL (5.8-8.1); Sodium 132 mmol/L (136-145)
== END 2022-12-08 17:55 | disposition home or self-care (01) ==
LOC: ERS 12:45
DX: L03.116 Cellulitis of left lower limb (principal); E78.5 Hyperlipidemia, unspecified; I10 Essential (primary) hypertension
CPT/HCPCS: 36415; 80053; 85025; 99283

== ENCOUNTER 2022-12-24 11:26 | Emergency (ER) | payer MEDICARE, BC ==
[2022-12-24 12:33] LABS: #Eosinphils 0.1 thou/uL (0.0-0.7); #Lymphocytes 1.7 thou/uL (1.20-3.40); #Monocytes 0.6 thou/uL (0.11-0.59); #Neutrophils 8.9 thou/uL (1.40-6.50); %Basophils 0.4 % (0.0-1.0); %Eosinophils 1.1 % (0.0-10.0); %Lymphocytes 14.9 % (21.0-51.0); %Monocytes 5.6 % (0.0-10.0); Mean Corpuscular HGB CONC 31.7 g/dL (32.0-36.0); Mean Corpuscular Hemoglobin 30.3 pg (27.0-31.0); Mean Corpuscular Volume 95.6 fl (78.0-98.0); Mean Platelet Volume 6.6 fL (7.4-10.4); Platelet Count 228 10x3/uL (130-400); RBC Distribution Width 11.8 % (11.5-14.5); Red Blood Cell (RBC) Count 5.27 mill/uL (4.70-6.10); White Blood Cell (WBC) Count 11.4 10x3/uL (4.8-10.8)
[2022-12-24 12:51] LABS: ALT (SGPT) 14 U/L (8-55); AST (SGOT) 17 U/L (5-34); Albumin 4.3 g/dL (3.4-4.8); Alkaline Phosphatase 68 U/L (40-110); Anion Gap 13 mmol/L (10-20); BUN (Urea Nitrogen) 12 mg/dL (8.4-25.7); Bilirubin, Total 1.2 mg/dL (0.2-1.2); Calc. Creatinine Clearance 0 mL/min (70-130); Calcium 10.2 mg/dL (7.8-10.44); Carbon Dioxide 29 mmol/L (23-31); Chloride 99 mmol/L (98-107); Estimated GFR 81; Globulin 2.8 g/dL (2.4-3.5); Glucose 105 mg/dL (80-115); Potassium 4.7 mmol/L (3.5-5.1); Protein, Total 7.1 g/dL (5.8-8.1); Sodium 136 mmol/L (136-145)
== END 2022-12-24 13:18 | disposition left against medical advice (07) ==
LOC: ERS 11:26
DX: Z53.29 Procedure and treatment not carried out because of patient's decision for other reasons (principal); I10 Essential (primary) hypertension; E78.5 Hyperlipidemia, unspecified
CPT/HCPCS: 36415; 80053; 85025